=== PATIENT | female | born 1965 | race Two or more races ===

== ENCOUNTER 2018-02-17 11:55 | Emergency (ER) | payer MEDICAID ==
[~2018-02-17] VITALS: Ht 165.1 cm; Wt 70.3 kg
[2018-02-17 12:37] VITALS: BP 113/75
--- NOTE | 2018-02-17 12:42 | Emergency Room Report ---
History of Present Illness General Chief Complaint: Seizure Source: Patient Present Illness HPI This patient was at her PMD and pt. reportedly had sz and was referred here. Pt. states she has daily sz. She is on Keppra 750 BID and Topamax. They were discussing changing meds. No trauma, no headache, no neck pain, no fever. Allergies: Coded Allergies: No Known Allergies (Unverified , 02/17/18) Patient History Now: No Nursing Documentation-PMH Hx Seizures: Yes Review of Systems Constitutional: Reports: no symptoms Eye: Reports: no symptoms ENT: Reports: no symptoms Respiratory: Reports: no symptoms Cardiovascular: Reports: no symptoms Gastrointestinal: Reports: no symptoms Genitourinary: Reports: no symptoms Musculoskeletal: Reports: no symptoms Skin: Reports: no symptoms Psychiatric: Reports: no symptoms Neurological: Reports: see HPI, seizure Endocrine: Reports: no symptoms Hematologic/Lymphatic: Reports: no symptoms Allergic: Reports: no symptoms All Other Systems: negative except mentioned in HPI Physical Exam Vital Signs Date Time Temp Pulse Resp B/P (MAP) Pulse Ox O2 Delivery O2 Flow Rate FiO2 02/17/18 11:52 97.9 78 16 126/78 98 Room Air 97.9 Sp02 EP Interpretation: reviewed, normal General Appearance: normal inspection, well appearing, no apparent distress, alert, GCS 15, non-toxic Head: normocephalic, atraumatic Eyes: bilateral eye normal inspection, bilateral eye PERRL, bilateral eye EOMI ENT: normal ENT inspection, hearing grossly normal, normal pharynx, no angioedema, normal voice, moist mucus membranes Neck: normal inspection, full range of motion, supple, no meningismus, no bony tend Respiratory: normal inspection, lungs clear, normal breath sounds, no rhonchi, no respiratory distress, no retraction, no accessory muscle use, no wheezing Cardiovascular #1: normal inspection, regular rate, rhythm, no edema Gastrointestinal: normal inspection, normal bowel sounds, non tender, soft, no mass, non-distended Musculoskeletal: gait/station normal, normal range of motion Neurologic: normal inspection, alert, oriented x3, responsive, motor strength/ tone normal Psychiatric: memory normal, depressed affect Suicide Risk Assessment: Suicidal Ideation: No Had intent to initiate attempt: No Pt's plan for suicide attempt: No Has means to complete attempt: No Skin: normal inspection, normal color, no rash, warm/dry Medical Decision Making Diagnostic Impression: Primary Impression: Seizure disorder ER Course This patient is alert and oriented, no worrisome features. This is a joint terminal attack controller problem. I did not witness sz here. Pt. states she has seizures "daily." I advised patient to continue to f/u PMD. Last Vital Signs Date Time Temp Pulse Resp B/P (MAP) Pulse Ox O2 Delivery O2 Flow Rate FiO2 02/17/18 12:37 97.9 61 12 113/75 100 Room Air 97.9 Disposition: HOME, SELF-CARE Condition: Stable Referrals: RAYNE MENARD MD (PCP) Patient Instructions: Seizure, Adult Inder Hough M.D. Feb 17, 2018 12:42
[2018-02-17 13:33] LABS: BASOPHILS % (AUTO) 0.9 % (0.0-2.0); EOSINOPHILS % (AUTO) 2.3 % (0.0-3.0); HEMATOCRIT 42.7 % (37.0-47.0); HEMOGLOBIN 14.2 G/DL (12.0-16.0); LYMPHOCYTES % (AUTO) 37.3 % (20.0-45.0); MEAN CORPUSCULAR VOLUME 87 FL (80-99); MONOCYTES % (AUTO) 6.5 % (1.0-10.0); PLATELET COUNT 199 K/UL (150-450); RED BLOOD COUNT 4.93 M/UL (4.20-5.40); RED CELL DISTRIBUTION WIDTH 11.3 % (11.6-14.8); WHITE BLOOD COUNT 5.5 K/UL (4.8-10.8)
[2018-02-17 13:47] LABS: ANION GAP 8 mmol/L (5-15); BLOOD UREA NITROGEN 14 mg/dL (7-18); CALCIUM 9.2 MG/DL (8.5-10.1); CARBON DIOXIDE 26 MMOL/L (21-32); CHLORIDE 108 MMOL/L (98-107); POTASSIUM 4.3 MMOL/L (3.5-5.1); SODIUM 142 MMOL/L (136-145)
[2018-02-17 13:50] LABS: ALANINE AMINOTRANSFERASE 17 U/L (12-78); ALBUMIN 3.9 G/DL (3.4-5.0); ALBUMIN/GLOBULIN RATIO 1.2 (1.0-2.7); ALKALINE PHOSPHATASE 122 U/L (46-116); ASPARTATE AMINO TRANSFERASE 20 U/L (15-37); BILIRUBIN,TOTAL 0.2 MG/DL (0.2-1.0)
[2018-02-17 14:02] VITALS: BP 97/61
== END 2018-02-17 14:01 | disposition home or self-care (01) ==
LOC: EDBD 11:55 → EMR 12:30
DX: G40.909 Epilepsy, unspecified, not intractable, without status epilepticus (principal)
CPT/HCPCS: 36415; 80053; 85025; 99284

== ENCOUNTER 2019-06-06 12:23 | Emergency (ER) | payer MEDICAID ==
[~2019-06-06] VITALS: Ht 154.9 cm; Wt 74.8 kg
[2019-06-06 12:25] VITALS: BP 97/53
--- NOTE | 2019-06-06 12:25 | NUR ---
ED Nurse Note: Pt arrived to the ED from school with c/o of abdominal pain with 10/10 pain scale and hypotension. Placed on bed, hooked to potline monitor. Addendum: 06/06/19 at 1253 by RASHID ED Nurse Note: Pt arrived to the ED with c/o of abdominal pain on lower area with 10/10 pain scale and hypotension. Placed on bed, hooked to potline monitor. VSS, no respiratory distress at this time. Pt verbalized she has hx of seizures and edema. ERMD at bedside. Will continue to monitor.
[2019-06-06] MEDS ORDERED: LORazepam Inj 2mg/ml 1ml IV ONE (12:45)
[2019-06-06] MEDS ORDERED: Ketorolac 30mg Inj IV ONE (12:45)
[2019-06-06] MEDS ORDERED: Omnipaque-300 100ml vial INJ PRN (12:45)
--- NOTE | 2019-06-06 13:06 | Emergency Room Report ---
History of Present Illness General Chief Complaint: Abdominal Pain Source: Patient (Maggy Wilson DO) Present Illness HPI Patient presents with complaints of lower abdominal pain started yesterday and worsened this morning Patient reports that she saw small trace of blood as well denies any epigastric or upper abdominal pain Denies any vomiting however patient also has had diarrhea denies any flank pain denies any recent travel or trauma Denies any chest pain or shortness of breath denies any fevers or chills pain is 7 out of 10 cramping in nature (Maggy Wilson DO) Allergies: Coded Allergies: MORPHINE (Unverified Allergy, Unknown, 06/06/19) QUETIAPINE (Unverified Allergy, Unknown, 06/06/19) Uncoded Allergies: CODEIN (Allergy, Unknown, 06/06/19) PENICILLIN (Allergy, Unknown, 06/06/19) SULFA (Allergy, Unknown, 06/06/19) Patient History Past Medical History: see triage record Now: No Reviewed Nursing Documentation: PMH: Agreed; PSxH: Agreed (Maggy Wilson DO) Nursing Documentation-PMH Hx Asthma: Yes Hx Seizures: Yes (Maggy Wilson DO) Review of Systems All Other Systems: negative except mentioned in HPI (Maggy Wilson DO) Physical Exam Vital Signs Date Time Temp Pulse Resp B/P (MAP) Pulse Ox O2 Delivery O2 Flow Rate FiO2 06/06/19 12:17 98.6 71 18 109/91 (97) 98 Room Air Sp02 EP Interpretation: reviewed, normal General Appearance: mild distress - Initially appears in some mild pain Head: normocephalic, atraumatic Eyes: bilateral eye PERRL, bilateral eye EOMI ENT: hearing grossly normal, normal pharynx, TMs + canals normal, uvula midline Neck: full range of motion, supple, no meningismus, no bony tend Respiratory: lungs clear, normal breath sounds, no rhonchi, no respiratory distress, no retraction, no accessory muscle use Cardiovascular #1: normal peripheral pulses, regular rate, rhythm, no edema, no gallop, no JVD, no murmur Gastrointestinal: normal bowel sounds, non tender - On palpation however patient points to the mid lower abdominal area also over the suprapubic region, soft, no mass, no organomegaly, non-distended, no guarding, no hernia, no pulsatile mass, no rebound Genitourinary: no CVA tenderness Musculoskeletal: normal inspection Neurologic: motor strength/tone normal, receiving barn custodian III-XII nml as tested, oriented x3 , sensory intact, responsive Psychiatric: mood/affect normal Skin: no rash Lymphatic: normal inspection, no adenopathy (Maggy Wilson DO) Medical Decision Making Diagnostic Impression: Primary Impression: UTI (urinary tract infection) Additional Impressions: Diarrhea Abdominal pain Renal calculi Degenerative disc disease Laboratory Tests Test 06/06/19 13:33 06/06/19 15:30 White Blood Count 12.4 K/UL (4.8-10.8) H Red Blood Count 4.97 M/UL (4.20-5.40) Hemoglobin 14.4 G/DL (12.0-16.0) Hematocrit 42.4 % (37.0-47.0) Mean Corpuscular Volume 85 FL (80-99) Mean Corpuscular Hemoglobin 28.9 PG (27.0-31.0) Mean Corpuscular Hemoglobin Concent 33.9 G/DL (32.0-36.0) Red Cell Distribution Width 11.6 % (11.6-14.8) Platelet Count 265 K/UL (150-450) Mean Platelet Volume 6.0 FL (6.5-10.1) L Neutrophils (%) (Auto) 79.0 % (45.0-75.0) H Lymphocytes (%) (Auto) 15.2 % (20.0-45.0) L Monocytes (%) (Auto) 4.4 % (1.0-10.0) Eosinophils (%) (Auto) 0.9 % (0.0-3.0) Basophils (%) (Auto) 0.5 % (0.0-2.0) Sodium Level 141 MMOL/L (136-145) Potassium Level 4.1 MMOL/L (3.5-5.1) Chloride Level 105 MMOL/L (98-107) Carbon Dioxide Level 24 MMOL/L (21-32) Anion Gap 12 mmol/L (5-15) Blood Urea Nitrogen 22 mg/dL (7-18) H Creatinine 1.0 MG/DL (0.55-1.30) Estimate Glomerular Filtration Rate 58.2 mL/min (>60) Glucose Level 104 MG/DL (74-106) Calcium Level 9.8 MG/DL (8.5-10.1) Total Bilirubin 0.3 MG/DL (0.2-1.0) Aspartate Amino Transferase (AST) 24 U/L (15-37) Alanine Aminotransferase (ALT) 17 U/L (12-78) Alkaline Phosphatase 177 U/L (46-116) H Total Protein 7.5 G/DL (6.4-8.2) Albumin 4.3 G/DL (3.4-5.0) Globulin 3.2 g/dL Albumin/Globulin Ratio 1.3 (1.0-2.7) Lipase 117 U/L (73-393) Urine Color Pale yellow Urine Appearance Slightly cloudy Urine pH 5 (4.5-8.0) Urine Specific [place] 1.015 (1.005-1.035) Urine Protein Negative (NEGATIVE) Urine Glucose (UA) Negative (NEGATIVE) Urine Ketones Negative (NEGATIVE) Urine Blood 2+ (NEGATIVE) H Urine Nitrite Negative (NEGATIVE) Urine Bilirubin Negative (NEGATIVE) Urine Urobilinogen Normal MG/DL (0.0-1.0) Urine Leukocyte Esterase 1+ (NEGATIVE) H Urine RBC 2-4 /HPF (0 - 2) H Urine WBC 2-4 /HPF (0 - 2) Urine Squamous Epithelial Cells Many /LPF (NONE/OCC) H Urine Bacteria Moderate /HPF (NONE) H Urine HCG, Qualitative Negative (NEGATIVE) (Manohar Hauser MD) Last Vital Signs Date Time Temp Pulse Resp B/P (MAP) Pulse Ox O2 Delivery O2 Flow Rate FiO2 06/06/19 12:17 98.6 71 18 109/91 (97) 98 Room Air ([facility]) Reevaluation Time: 16:20 Reevaluation Impression I assumed care of the patient approximately 1300 hrs. Briefly, this is a 54-year-old female presenting for evaluation of lower abdominal pain and diarrhea. She was treated with Toradol and Ativan by previous physician. At the time of signout we were awaiting CT and lab results. CT find some inflamed nodes of unclear significance, renal calculi, degenerative disc disease but no evidence of pancreatitis, appendicitis, obstruction or other acute surgical/severe medical issues. Labs are otherwise unremarkable. Urinalysis shows 1+ leukocyte esterase and bacteria though there are many epithelial cells. May represent a contaminated sample however given the patient's lower abdominal pain and reports of dysuria will elect to treat. Started on Keflex. Zofran also ordered for symptomatic control. She will follow-up with clinic/PMD. Discussed reasons to return to the emergency department. She understands and agrees with treatment plan. (Manohar Hauser MD) Disposition: HOME, SELF-CARE Condition: Stable Scripts Cephalexin* (KEFLEX*) 500 Mg Capsule 500 MG ORAL EVERY 12 HOURS for 7 Days, #14 CAP 0 Refills Prov: Manohar Hauser MD 06/06/19 Ondansetron Odt* (ZOFRAN ODT*) 4 Mg Tab.rapdis 4 MG BC EVERY 6 HOURS PRN for Nausea & Vomiting, #20 TAB 0 Refills Prov: Manohar Hauser MD 06/06/19 Maggy Wilson DO Jun 06, 2019 13:06 Manohar Hauser MD Jun 06, 2019 16:22
[2019-06-06 13:59] LABS: BASOPHILS % (AUTO) 0.5 % (0.0-2.0); EOSINOPHILS % (AUTO) 0.9 % (0.0-3.0); HEMATOCRIT 42.4 % (37.0-47.0); HEMOGLOBIN 14.4 G/DL (12.0-16.0); LYMPHOCYTES % (AUTO) 15.2 % (20.0-45.0); MEAN CORPUSCULAR VOLUME 85 FL (80-99); MONOCYTES % (AUTO) 4.4 % (1.0-10.0); PLATELET COUNT 265 K/UL (150-450); RED BLOOD COUNT 4.97 M/UL (4.20-5.40); RED CELL DISTRIBUTION WIDTH 11.6 % (11.6-14.8); WHITE BLOOD COUNT 12.4 K/UL (4.8-10.8)
[2019-06-06 14:00] VITALS: BP 110/68
[2019-06-06 14:06] LABS: ANION GAP 12 mmol/L (5-15); BLOOD UREA NITROGEN 22 mg/dL (7-18); CALCIUM 9.8 MG/DL (8.5-10.1); CARBON DIOXIDE 24 MMOL/L (21-32); CHLORIDE 105 MMOL/L (98-107); POTASSIUM 4.1 MMOL/L (3.5-5.1); SODIUM 141 MMOL/L (136-145)
--- NOTE | 2019-06-06 14:10 | NUR ---
ED Nurse Note: pt in ct scan
[2019-06-06 14:11] LABS: ALANINE AMINOTRANSFERASE 17 U/L (12-78); ALBUMIN 4.3 G/DL (3.4-5.0); ALBUMIN/GLOBULIN RATIO 1.3 (1.0-2.7); ALKALINE PHOSPHATASE 177 U/L (46-116); ASPARTATE AMINO TRANSFERASE 24 U/L (15-37); BILIRUBIN,TOTAL 0.3 MG/DL (0.2-1.0)
--- NOTE | 2019-06-06 14:21 | NUR ---
ED Nurse Note: Pt returned from CT. Still on stable condition.
--- NOTE | 2019-06-06 14:40 | NUR ---
ED Nurse Note: Pt still on stable condition. VSS, no signs of any respiratory distress. Verbalized absence of pain.
--- NOTE | 2019-06-06 14:46 | Diagnostic Imaging Report ---
Indication: Lower abdominal pain, started yesterday worsening this morning Technique: Spiral acquisitions obtained through the abdomen and pelvis. No oral contrast utilized, per emergency room physician request No IV contrast utilized, per referring physician request.. Multiplanar reconstructions were generated. Total dose length product 1265 mGycm. CTDIvol(s) 23 mGy. Dose reduction achieved using automated exposure control Comparison: None Findings: Lack of enteric contrast limits assessment of the GI tract. The appendix is normal. There is no evidence of colonic diverticulosis or diverticulitis. No small bowel distention. No free or loculated intraperitoneal gas or fluid is evident. The distal esophagus, stomach, duodenum are unremarkable. Lack of IV contrast limits assessment of the solid organs. The liver, gallbladder, bile ducts, pancreas, spleen, adrenals are unremarkable. Prominent note is seen in the lesser sac, measuring up to 17 mm. The kidneys demonstrate small calyceal calculi bilaterally, measuring up to 3 mm diameter on the right and 4 mm on the left. No hydronephrosis or hydroureter. No focal parenchymal abnormality. No retroperitoneal or mesenteric mass or adenopathy. No pelvic mass or adenopathy. The uterus is absent. The bladder is unremarkable. The included lung bases are clear. The bones demonstrate bilateral spondylolysis of L3, with grade 1-2 L3 on L4 spondylolisthesis and secondary degenerative change. Impression: Limited assessment of the GI tract, due to lack of enteric contrast administration No definite acute abnormality Bilateral nonobstructive intrarenal calculi. No evidence of ureteral calculus or obstructive uropathy Borderline adenopathy in the lesser sac, of uncertain significance Bilateral L3 spondylolysis, grade 1-2 L3 on L4 spondylolisthesis and secondary degenerative change Evidence of prior hysterectomy The CT scanner at [facility] is accredited by the [employer] and the scans are performed using protocols designed to limit radiation exposure to as low as reasonably achievable to attain images of sufficient resolution adequate for diagnostic evaluation.
--- NOTE | 2019-06-06 15:15 | NUR ---
ED Nurse Note: Pt able to urinate via urinary catheter. Specimen sent to labs.
[2019-06-06 15:40] VITALS: BP 106/65
[2019-06-06 15:51] LABS: APPEARANCE,URINE SLIGHTLY CLOUDY; BILIRUBIN, URINE NEGATIVE (NEGATIVE); COLOR,URINE PALE YELLOW; GLUCOSE, URINE (UA) NEGATIVE (NEGATIVE); KETONES,URINE NEGATIVE (NEGATIVE); LEUKOCYTE ESTERASE ,URINE 1+ (NEGATIVE); NITRITE,URINE NEGATIVE (NEGATIVE); PH,URINE 5 (4.5-8.0); PROTEIN,URINE NEGATIVE (NEGATIVE); UROBILINOGEN,URINE NORMAL MG/DL (0.0-1.0)
[2019-06-06] MEDS ORDERED: ONDANSETRON ODT4 MG BC (16:03)
--- NOTE | 2019-06-06 16:10 | NUR ---
ED Nurse Note: Pt still on bed, stable condition, no signs of any respiratory distress. ERMD on bedside.
[2019-06-06] MEDS ORDERED: CEPHALEXIN500 MG ORAL (16:24)
[2019-06-06 16:25] VITALS: BP 85/60
--- NOTE | 2019-06-06 16:25 | NUR ---
ER DISCHARGE NOTE: Patient is cleared to be discharged per ERMD, pt is aox4, on room air, with stable vital signs. pt was given dc and prescription instructions, pt was able to verbalize understanding, pt id band and iv site removed without complications. pt is able to ambulate. pt took all belongings.
== END 2019-06-06 16:37 | disposition home or self-care (01) ==
LOC: EDBD 12:23 → EMR 13:10
DX: N39.0 Urinary tract infection, site not specified (principal); R19.7 Diarrhea, unspecified; R10.9 Unspecified abdominal pain; N20.0 Calculus of kidney; M51.37 Other intervertebral disc degeneration, lumbosacral region; Z90.710 Acquired absence of both cervix and uterus
CPT/HCPCS: 36415; 74176; 80053; 81003; 81025; 83690; 85025; 87086; 96361; 96374; 96375; J1885; J7030; Z7502; 99284